=== PATIENT | female | born 1950 | race African-American/Black ===

== ENCOUNTER 2017-11-27 04:56 | Emergency (ER) | payer MEDICARE, OTHER ==
[2017-11-27] MEDS: ALPRAZOLAM 0.25 MG TAB PO (05:46)
== END 2017-11-27 06:14 | disposition home or self-care (01) ==
LOC: E/R 04:56
DX: F41.9 Anxiety disorder, unspecified (principal)
CPT/HCPCS: 93005; 99284-25